=== PATIENT | female | born 1985 | race Caucasian/White ===

== ENCOUNTER 2016-09-10 15:18 | Outpatient (CLI) | payer MEDICAID ==
[~2016-09-10] VITALS: Ht 157.5 cm; Wt 89.9 kg
[~2016-09-10 15:18] MED LIST: ALBU18HF IH; AZIT250T6 PO; OSEL30CA PO; PREN1TAB49 PO
[2016-09-10 15:36] VITALS: BP 113/63; PULSE 89; RESP 18; Ht 157.5 cm; Wt 89.9 kg
[2016-09-10 16:17] LABS: BASOPHILS % 0.5 % (0.0-2.0); EOSINOPHILS # 0.2 10^3/ul (0.0-0.5); EOSINOPHILS % 2.5 % (0.0-7.0); HEMATOCRIT 31.4 % (37.0-47.0); HEMOGLOBIN 10.6 g/dl (12.0-16.0); LYMPHOCYTES # 1.7 10^3/ul (0.8-2.9); LYMPHOCYTES % 18.9 % (15.0-51.0); MEAN CORPUSCULAR HGB CONC 33.8 g/dl (32.0-37.0); MEAN CORPUSCULAR VOLUME 82.8 fl (82.0-101.0); MEAN PLATELET VOLUME 8.2 fl (7.4-10.4); MONOCYTE # 0.7 10^3/ul (0.3-0.9); MONOCYTES % 7.3 % (0.0-11.0); NEUTROPHIL # 6.4 10^3/ul (1.6-7.5); NEUTROPHILS % 70.8 % (39.0-77.0); PLATELET COUNT 226 10^3/UL (140-440); RED BLOOD COUNT 3.79 10^6/ul (4.20-5.40); RED CELL DISTRIBUTION WIDTH 15.3 % (11.5-14.5)
--- NOTE | 2016-09-10 16:17 | QN ---
Documentation Comment 31 y/o female at 34.1 weeks C/O onset of generalized body itching(including palms and soles) X 3 days She has Hx of Asthma: denies SOB cough and..... NST appears R BPP pending as well as labs Bile acids are ordered if CMP stays normal will start on Actigall and Welchol. Follow uo in NST for ? elevated bile acids HAYDEE INFANTE MD Sep 10, 2016 16:17
[2016-09-10 16:21] LABS: CONDITION 1; LH ANALYZER COMMENTS 1
[2016-09-10 16:25] LABS: ALBUMIN 3.2 g/dl (3.3-4.9)
[2016-09-10 16:26] LABS: POTASSIUM 3.9 mmol/L (3.5-5.1)
[2016-09-10 16:28] LABS: ALBUMIN/GLOBULIN RATIO 0.96; CREATININE 0.41 mg/dl (0.44-1.00); TOTAL PROTEIN 6.5 g/dl (6.1-8.1)
[2016-09-10 16:29] LABS: CALCIUM 8.7 mg/dl (8.4-10.2)
--- NOTE | 2016-09-10 16:45 | RADRPT ---
PROCEDURE: US OB biophysical profile. CLINICAL INDICATION: decreased movements, asthma TECHNIQUE: Multiple sonographic images of the pelvis were obtained. The images were reviewed on a PACS workstation. COMPARISON: No prior studies are available for comparison. FINDINGS: There is a single viable intrauterine gestation. Cardiac activity is present with 154 beats per min moon. There is a vertex presentation. The placenta is fundal. There is no evidence of placental abruption. There is a normal amount of amniotic fluid with an SHIRA = 14 cm. Biophysical profile: movement 2/2 tone 2/2. breathing 2/2 SHIRA 2/2 Total 03/04 RPTAT: AA . IMPRESSION: Normal biophysical profile. . .Kaveh Aguilar MD, MD Date Time Electronically viewed and signed by .Kaveh Aguilar MD, MD on 09/10/2016 16:45 .S/
--- NOTE | 2016-09-10 16:56 | TRIAGE ---
OB Triage Datetime Report Generated by CPN: 09/10/2016 16:56 Datetime: 09/10/2016 16:30 Stage of : OB Triage Maternal Assessment Level of Consciousness: Fully Conscious Labor Evaluation Frequency: NONE Monitor Mode: External Resting Tone [place]: Relaxed Heart Rate FHR Baseline Rate: 145 Monitor Mode: External US Variability: Moderate 6-25 bpm Accelerations: 15X15 Decelerations: None Pain Assessment Pain Scale: 0 Pain Presence: None/Denies Pain Type: N/A Pain Goal: 3 Vaginal Exam Membrane Status: Intact Vaginal Bleeding: None Datetime: 09/10/2016 15:33 Assessment Type: Triage Maternal Assessment Level of Consciousness: Fully Conscious DTR's/Clonus: DTRs 2+; No Clonus Headache: Denies Blurred Vision: No Respiratory Effort: Unlabored; Regular Rhythm; Equal Expansion Breath Sounds, Left: Clear and Equal Breath Sounds, Right: Clear and Equal Nausea/Vomiting: Denies RUQ Epigastric Pain: Denies Lower Extremities Edema: None Degree: None Upper Extremities Edema: None Degree: None Facial Edema: None Fall Risk Assessment History of Falling: (0) No Secondary Diagnosis: (0) No Ambulatory Aid: (0) Bedrest/Nurse Assist IV Therapy: (0) No Gait: (0) Normal/Bedrest/Immobile Mental Status: (0) Oriented to Own Ability Fall Score: 0 Fall Risk Score Definition: No Risk: No action required Datetime: 09/10/2016 15:32 Time of Arrival: 09/10/2016 15:17 EGA: 34.1 Arrived By: Ambulatory Arrived From: Dr. Martinez Chief Complaint: pt sent into eval. for c/o asthma and itching Movement: Present Contractions: Denies/Absent Rupture of Membranes: Denies Vaginal Bleeding: None Vaginal Discharge: Denies Recent Sexual Intercouse: Denies Abdominal Trauma: Not Applicable Patient Complaints: Cough; Shortness of Breath; Other Provider Notified: LISA Initial Plan: NST/CBC/CMP/BPP/BILE ACIDS Datetime: 07/26/2016 22:52 EGA: 27.4 Datetime: 07/26/2016 22:41 Fall Score: 0 Fall Risk Score Definition: No Risk: No action required Datetime: 07/19/2016 19:54 Fall Score: 0 Fall Risk Score Definition: No Risk: No action required Datetime: 06/17/2016 19:40 Fall Score: 0 Fall Risk Score Definition: No Risk: No action required Datetime: 06/17/2016 18:50 Fall Score: 0 Fall Risk Score Definition: No Risk: No action required Datetime: 06/17/2016 18:48 EGA: 22.0
[2016-09-10] MEDS ORDERED: URSO300C3 PO (16:57)
[2016-09-10] MEDS ORDERED: COLE625T2 PO (16:58)
== END 2016-09-10 17:18 | disposition home or self-care (01) ==
LOC: L-D 15:18 → OBT 15:18
PROVIDERS: ATTEND Obstetrics & Gynecology
DX: O26.893 Other specified pregnancy related conditions, third trimester (principal); L29.9 Pruritus, unspecified; O36.8130 Decreased fetal movements, third trimester, not applicable or unspecified; O99.513 Diseases of the respiratory system complicating pregnancy, third trimester; J45.909 Unspecified asthma, uncomplicated; Z3A.34 34 weeks gestation of pregnancy
CPT/HCPCS: 36415; 76818; 80053; 83789; 85025; Z7500; G0463

== ENCOUNTER 2016-09-12 13:48 | Outpatient (CLI) | payer MEDICAID ==
[~2016-09-12] VITALS: Ht 157.5 cm; Wt 90.8 kg
[~2016-09-12 13:48] MED LIST changes: -AZIT250T6 PO; +COLE625T2 PO; -OSEL30CA PO; +URSO300C3 PO
[2016-09-12 14:36] VITALS: BP 106/63; PULSE 118; RESP 18; Ht 157.5 cm; Wt 90.8 kg
--- NOTE | 2016-09-12 15:37 | RADRPT ---
PROCEDURE: US OB biophysical profile. CLINICAL INDICATION: decreased movements TECHNIQUE: Multiple sonographic images of the pelvis were obtained. The images were reviewed on a PACS workstation. COMPARISON: 09/10/16 FINDINGS: There is a single viable intrauterine gestation. Cardiac activity is present with 148 beats per min moon. There is a vertex presentation. The placenta is fundal. There is no evidence of placental abruption. There is a normal amount of amniotic fluid with an SHIRA = 16.3 cm. Biophysical profile: movement 2/2 tone 2/2. breathing 2/2 SHIRA 2/2 Total 03/04 RPTAT: AA . IMPRESSION: Normal biophysical profile. . .Kaveh Aguilar MD, MD Date Time Electronically viewed and signed by .Kaveh Aguilar MD, on 09/12/2016 15:37 .S/
--- NOTE | 2016-09-12 17:31 | QN ---
Documentation Comment 31 y/o female here for NST SHIRA for ? cholestasis NST R BPP 8/8P F/U in 3-4 days HAYDEE INFANTE MD Sep 12, 2016 17:30
== END 2016-09-12 17:42 | disposition home or self-care (01) ==
LOC: OBT 13:48 → L-D 13:49 → OBT 17:42
PROVIDERS: ATTEND Obstetrics & Gynecology
DX: O26.613 Liver and biliary tract disorders in pregnancy, third trimester (principal); K83.1 Obstruction of bile duct; Z3A.34 34 weeks gestation of pregnancy
CPT/HCPCS: 76818; Z7500; G0463

== ENCOUNTER 2016-09-16 07:34 | Outpatient (CLI) | payer MEDICAID ==
--- NOTE | 2016-09-16 08:58 | RADRPT ---
PROCEDURE: OB ultrasound for biophysical profile CLINICAL INDICATION: Cholestasis. Biophysical profile. . TECHNIQUE: Multiple sonographic images of the pelvis were obtained. Transabdominal view of the gr avid uterus are available for review. The images were reviewed on a PACS workstation. COMPARISON: 09/12/2016 FINDINGS: breathing movement = 2/2 tone = 2/2 motion = 2/2 SHIRA = 2/2 Single intrauterine gestation is identified in cephalic position. heart rate is 134 bpm. Plac enta is posterior fundal without evidence for abruption or previa. SHIRA measures 14.5 cm, within nor mal limits. IMPRESSION: 1. Single live intrauterine gestation. 2. Biophysical profile = 8/8. 3. SHIRA = 14.5 cm. RPTAT: EE .Francesco Clancy MD, Date Time Electronically viewed and signed by .Francesco Clancy MD, on 09/16/2016 08:57 .R/
== END 2016-09-16 10:00 | disposition home or self-care (01) ==
LOC: L-D 07:34 → OBT 07:34 → L-D 07:40 → OBT 07:40
PROVIDERS: ATTEND Obstetrics & Gynecology
DX: O26.619 Liver and biliary tract disorders in pregnancy, unspecified trimester (principal); Z3A.00 Weeks of gestation of pregnancy not specified
CPT/HCPCS: 76818; Z7500; G0463

== ENCOUNTER 2016-09-20 15:43 | Outpatient (CLI) | payer MEDICAID ==
[~2016-09-20] VITALS: Ht 157.5 cm; Wt 91.8 kg
[~2016-09-20 15:43] MED LIST changes: -ALBU18HF IH; -COLE625T2 PO
[2016-09-20 16:04] VITALS: BP 114/56; Ht 157.5 cm; Wt 91.8 kg
--- NOTE | 2016-09-20 16:49 | RADRPT ---
PROCEDURE: OB ultrasound for biophysical profile CLINICAL INDICATION: Decreased movement TECHNIQUE: Multiple sonographic images of the pelvis were obtained. Transabdominal view of the gr avid uterus are available for review. The images were reviewed on a PACS workstation. COMPARISON: OB ultrasound 09/16/2016 FINDINGS: breathing movement = 2/2 tone = 2/2 motion = 2/2 SHIRA = 2/2 SHIRA = 13.8 cm Single live intrauterine with cardiac activity. heart rate equals 141 beats p er minute. Presentation is cephalic. The placenta is fundal. IMPRESSION: 1. Single viable intrauterine gestation. 2. Biophysical profile = 8/8. 3. SHIRA = 13.8 cm. RPTAT: HJBF .Pablo Berman MD, MD Date Time Electronically viewed and signed by .Pablo Berman MD, MD on 09/20/2016 16:49 .B/
--- NOTE | 2016-09-20 18:00 | QN ---
Documentation Comment 31 y/o female p3 with at 35.4 weeks here for decreased FM bile acids were drawn on : Normal NST R BPP 03/04 P: home; HAYDEE INFANTE MD Sep 20, 2016 18:00
--- NOTE | 2016-09-20 18:23 | PN ---
Date/Time of Note Date/Time of Note DATE: 09/20/16 TIME: 18:20 OB Subjective Subjective Subjective No C/O H/A B/V or epigastric pain OB Objective Objective Objective Cx: 1cm -4 intact OB Assessment/Plan Reason for admission: induction of labor Other Assessment: PIH 37 weeks Induction Method: per Misoprostol Protocol HAYDEE INFANTE MD Sep 20, 2016 18:23
== END 2016-09-20 18:35 | disposition home or self-care (01) ==
LOC: L-D 15:43 → OBT 15:43
PROVIDERS: ATTEND Obstetrics & Gynecology
DX: O36.8130 Decreased fetal movements, third trimester, not applicable or unspecified (principal); O13.3 Gestational [pregnancy-induced] hypertension without significant proteinuria, third trimester; Z3A.35 35 weeks gestation of pregnancy
CPT/HCPCS: 76818; Z7500; G0463

== ENCOUNTER 2016-09-24 01:05 | Outpatient (CLI) | payer MEDICAID ==
[~2016-09-24] VITALS: Ht 157.5 cm; Wt 92.8 kg
[2016-09-24 01:27] VITALS: BP 108/59; PULSE 80; RESP 20; Ht 157.5 cm; Wt 92.8 kg
[2016-09-24] MEDS ORDERED: HYDROmorphONE 1 MG/ML SYG IV STA (01:31)
[2016-09-24] MEDS ORDERED: LACTATED RINGER'S 1,000 ML IV* SCH (02:00)
[2016-09-24] MEDS ORDERED: LACTATED RINGER'S 500 ML IV ONE (02:00)
--- NOTE | 2016-09-24 02:08 | RADRPT ---
PROCEDURE: ULTRASOUND BIOPHYSICAL PROFILE CLINICAL INDICATION: 31-year-old female for viability. TECHNIQUE: Multiple sonographic images were obtained in order to perform a biophysical profile The images were reviewed on a PACS workstation. COMPARISON: Ultrasound biophysical profile September 20, 2016. FINDINGS: There is a single viable intrauterine gestation. There is a vertex presentation. Cardiac activity i s present at 159 beats per minute. The placenta is fundal. The results of the biophysical profile a re as follows: breathing movement = 2/2 Gross body movement = 2/2 tone = 2/2 Qualitative amniotic fluid volume = 2/2 Amniotic fluid index equals 10.2 cm. This yields a biophysical profile score of 8/8. IMPRESSION: Biophysical profile score is 8/8. .Juan Francisco Amaral MD, MD Date Time Electronically viewed and signed by .Juan Francisco Amaral MD, on 09/24/2016 02:07 .Genoveva/
--- NOTE | 2016-09-24 02:09 | RADRPT ---
PROCEDURE: ULTRASOUND LIMITED ABDOMEN CLINICAL INDICATION: 31-year-old female with abdominal pain. TECHNIQUE: Multiple sonographic of the right upper quadrant of the abdomen were obtained. The imag es were reviewed on a PACS workstation. COMPARISON: None. FINDINGS: The pancreas is not well visualized secondary to overlying bowel gas. The liver displays normal echogenicity. The liver measures cm in length. No evidence of intrahepat ic biliary ductal dilatation is seen. The portal and hepatic veins are unremarkable. The gallbladder contains multiple shadowing stones. The gallbladder wall is at the upper limits of normal measuring 3.2 mm. No pericholecystic fluid is seen. The common bile duct measures 3.0 mm and is not dilated. The right kidney displays normal echogenicity. The right kidney measures 15.3 cm in maximal length. No caliectasis or hydronephrosis is seen. No free fluid is seen. IMPRESSION: Cholelithiasis. .Juan Francisco Amaral MD, Date Time Electronically viewed and signed by .Juan Francisco Amaral MD, on 09/24/2016 02:08 .Marco A
[2016-09-24 02:22] LABS: ADD UMIC NO; URINE BILIRUBIN (Dip) NEGATIVE (NEGATIVE); URINE BLOOD (Dip) NEGATIVE (NEGATIVE); URINE COLOR LT. YELLOW (YELLOW); URINE GLUCOSE (Dip) NEGATIVE (NEGATIVE); URINE KETONES (Dip) NEGATIVE (NEGATIVE); URINE LEUKOCYTE ESTERASE (Dip) NEGATIVE (NEGATIVE); URINE NITRITE (Dip) NEGATIVE (NEGATIVE); URINE TOTAL PROTEIN (Dip) NEGATIVE (NEGATIVE); URINE UROBILINOGEN (Dip) 0.2 E.U./dL (0.1-1.0)
[2016-09-24 02:36] LABS: ADD SCAN DIFF NO
[2016-09-24 02:37] LABS: BASOPHILS % 0.5 % (0.0-2.0); EOSINOPHILS # 0.1 10^3/ul (0.0-0.5); EOSINOPHILS % 1.7 % (0.0-7.0); HEMATOCRIT 31.6 % (37.0-47.0); HEMOGLOBIN 10.4 g/dl (12.0-16.0); LYMPHOCYTES # 1.8 10^3/ul (0.8-2.9); LYMPHOCYTES % 22.1 % (15.0-51.0); MEAN CORPUSCULAR HEMOGLOBIN 27.4 pg (29.0-33.0); MEAN CORPUSCULAR HGB CONC 32.9 g/dl (32.0-37.0); MEAN CORPUSCULAR VOLUME 83.2 fl (82.0-101.0); MEAN PLATELET VOLUME 11.1 fl (7.4-10.4); MONOCYTE # 0.7 10^3/ul (0.3-0.9); MONOCYTES % 8.5 % (0.0-11.0); NEUTROPHIL # 5.5 10^3/ul (1.6-7.5); NEUTROPHILS % 66.6 % (39.0-77.0); PLATELET COUNT 200 10^3/UL (140-415); RED CELL DISTRIBUTION WIDTH 15.2 % (11.5-14.5); WHITE BLOOD COUNT 8.3 10^3/ul (4.8-10.8)
[2016-09-24 03:49] LABS: POTASSIUM 3.8 mmol/L (3.5-5.1)
[2016-09-24 03:51] LABS: CREATININE 0.4 mg/dl (0.44-1.00)
[2016-09-24 03:52] LABS: CALCIUM 8.5 mg/dl (8.4-10.2)
--- NOTE | 2016-09-24 04:23 | PN ---
Date/Time of Note Date/Time of Note DATE: 09/24/16 TIME: 04:17 OB Subjective Subjective Subjective 31 Year-old with SIUP at 36 1/7 wks presents with a chief complaint of abdominal pain. She has been receiving her care with Dr. Diaz. She states good movement. She denies nausea, vomiting, shortness of breath, chest pain, headache, visual changes, vaginal bleeding or LOF. OB Objective Objective Objective Physical Exam: General: Patient appears well, alert and oriented, NAD, appropriate mood and affect ABD: gravid, soft, mil RUQ tenderness, no rebound. Back: No CVA tenderness (B/L) LE: No clubbing, cyanosis, edema, thigh or calf tenderness bilaterally FHT: 140 bpm , moderate variability with acceleration, no deceleration-category I Contractions: None OB, BPP and abdominal us performed. Please see the report OB Assessment/Plan Other plan: 31 Year-old with cholestasis on actigal and cholelithiasis at 36 1/7 wks - FHR: No sign of metabolic acidosis- Category I - Continuous EFM, toco - Contractions: None. - Reactive NST. BPP: 10/10 - She received dilaudid x1, currently has no further pain - Symptoms and sign of labor, preeclampsia, kick count discussed with patient, she voiced understanding. All of her questions answered. - Patient was discharged home in stable condition with the appropriate discharge instructions provided. I would like patient to have close follow-up with her primary OB physician or outpatient clinic in 1-2 days or return to the ER for worsening symptoms or any other urgent concerns. KASHMIR TEJADA Sep 24, 2016 04:23
--- NOTE | 2016-09-24 06:54 | TRIAGE ---
OB Triage Datetime Report Generated by CPN: 09/24/2016 06:53 Datetime: 09/24/2016 04:36 Stage of : OB Triage Labor Evaluation Frequency: Irregular Monitor Mode: External Duration (sec)2399: 40-70 Quality: Mild Pattern: Normal: <= 5 Contractions in 10 Minutes Resting Tone [place]: Relaxed Heart Rate FHR Baseline Rate: 120 Monitor Mode: External US FHR Baseline Changes: No Baseline Change Variability: Moderate 6-25 bpm Accelerations: 15X15 Decelerations: None Category: Category I Pain Assessment Pain Scale: 0 Pain Presence: None/Denies Pain Type: N/A Pain Assessment Comments: Pt denies any further pain Datetime: 09/24/2016 04:21 Assessment Type: Triage Datetime: 09/24/2016 04:00 Stage of : OB Triage Labor Evaluation Frequency: Irregular Monitor Mode: External Duration (sec)2399: 40-80 Quality: Mild Pattern: Normal: <= 5 Contractions in 10 Minutes Resting Tone [place]: Relaxed Heart Rate FHR Baseline Rate: 120 Monitor Mode: External US Variability: Moderate 6-25 bpm Accelerations: 15X15 Decelerations: None Category: Category I Datetime: 09/24/2016 03:00 Stage of : OB Triage Labor Evaluation Frequency: Irregular Monitor Mode: External Duration (sec)2399: 40-80 Quality: Mild Pattern: Normal: <= 5 Contractions in 10 Minutes Resting Tone [place]: Relaxed Heart Rate FHR Baseline Rate: 125 Monitor Mode: External US FHR Baseline Changes: No Baseline Change Variability: Moderate 6-25 bpm Accelerations: 15X15 Decelerations: None Category: Category I Datetime: 09/24/2016 02:00 Stage of : OB Triage Labor Evaluation Frequency: Occasional Monitor Mode: External Duration (sec)2399: 40-60 Quality: Mild Pattern: Normal: <= 5 Contractions in 10 Minutes Resting Tone [place]: Relaxed Heart Rate FHR Baseline Rate: 125 Monitor Mode: External US Variability: Moderate 6-25 bpm Accelerations: 15X15 Decelerations: None Category: Category I Datetime: 09/24/2016 01:20 Stage of : OB Triage Datetime: 09/24/2016 01:15 Stage of : OB Triage Assessment Type: Triage Maternal Assessment Level of Consciousness: Fully Conscious DTR's/Clonus: DTRs 2+; No Clonus Headache: Denies Blurred Vision: No Respiratory Effort: Unlabored; Regular Rhythm; Equal Expansion Breath Sounds, Left: Clear and Equal Breath Sounds, Right: Clear and Equal Nausea/Vomiting: Denies RUQ Epigastric Pain: Present (Annotations: RUQ not central abd) Lower Extremities Edema: Bilateral Lower Extremities Degree: 1+ Upper Extremities Edema: Bilateral Upper Extremities Degree: 1+ Facial Edema: None Temperature Route: Oral Fall Risk Assessment History of Falling: (0) No Secondary Diagnosis: (0) No Ambulatory Aid: (0) Bedrest/Nurse Assist IV Therapy: (0) No Gait: (0) Normal/Bedrest/Immobile Mental Status: (0) Oriented to Own Ability Fall Score: 0 Fall Risk Score Definition: No Risk: No action required Pain Assessment Pain Scale: 8 Pain Presence: Constant Pain Type: Sharp; Stabbing Pain Location: Abdomen (Annotations: RUQ) Pain Relief Measures: Comfort Measures Datetime: 09/24/2016 01:13 Monitor Mode: External Contraction Comments: [place] applied Heart Rate FHR Baseline Rate: 135 Monitor Mode: External US Comments: EFM applied Datetime: 09/24/2016 01:12 Time of Arrival: 09/24/2016 00:58 EGA: 36.1 Arrived By: Wheelchair Arrived From: Home Chief Complaint: Constant RUQ pain Movement: Present Contractions: Denies/Absent Rupture of Membranes: Denies Vaginal Bleeding: None Vaginal Discharge: Denies Abdominal Trauma: Not Applicable Patient Complaints: Other Additional Patient Complaints: Pt reports having cholestasis - currently taking Ursodiol _ Welchol Time Provider Notified: 09/24/2016 01:20 Provider Notified: Initial Plan: U/S RUQ, BPP, CBC, CMP, IV hydration _ Dilaudid 1mg IVP Datetime: 09/20/2016 18:23 Time of Arrival: 09/20/2016 15:40 EGA: 35.4 Arrived By: Ambulatory Arrived From: Home Chief Complaint: DFM Movement: Decreased Contractions: Denies/Absent Rupture of Membranes: Denies Vaginal Bleeding: None Vaginal Discharge: Denies Recent Sexual Intercouse: Denies Abdominal Trauma: Not Applicable Patient Complaints: Other Time Provider Notified: 09/20/2016 16:20 Provider Notified: DR. LISA Initial Plan: NST Datetime: 09/20/2016 18:19 Labor Evaluation Frequency: 0 Monitor Mode: External Resting Tone [place]: Relaxed Monitor Mode: External US Variability: Moderate 6-25 bpm Accelerations: 15X15 Decelerations: None Category: Category I Datetime: 09/20/2016 17:33 Labor Evaluation Frequency: 0 Monitor Mode: External Resting Tone [place]: Relaxed Heart Rate FHR Baseline Rate: 155 Monitor Mode: External US Variability: Moderate 6-25 bpm Accelerations: 15X15 Decelerations: None Category: Category I Pain Presence: None/Denies Pain Type: N/A Datetime: 09/20/2016 16:07 Stage of : OB Triage Assessment Type: Triage Maternal Assessment Level of Consciousness: Fully Conscious DTR's/Clonus: DTRs 2+; No Clonus Headache: Denies Blurred Vision: No Respiratory Effort: Unlabored; Regular Rhythm; Equal Expansion Breath Sounds, Left: Clear and Equal Breath Sounds, Right: Clear and Equal Nausea/Vomiting: Denies RUQ Epigastric Pain: Denies Lower Extremities Edema: None Degree: None Upper Extremities Edema: None Degree: None Facial Edema: None Temperature Route: Oral Fall Risk Assessment History of Falling: (0) No Secondary Diagnosis: (0) No Ambulatory Aid: (0) Bedrest/Nurse Assist IV Therapy: (0) No Gait: (0) Normal/Bedrest/Immobile Mental Status: (0) Oriented to Own Ability Fall Score: 0 Fall Risk Score Definition: No Risk: No action required Labor Evaluation Frequency: 0 Monitor Mode: External Heart Rate FHR Baseline Rate: 155 Monitor Mode: External US Variability: Moderate 6-25 bpm Accelerations: 10X10 Decelerations: None Category: Category I Pain Assessment Pain Scale: 6 Pain Presence: Intermittent Pain Type: Pressure Pain Location: Abdomen Pain Goal: 0 Datetime: 09/16/2016 10:13 Time of Arrival: 09/20/2016 15:40 EGA: 35.4 Arrived By: Ambulatory Arrived From: Home Chief Complaint: DFM Movement: Decreased Contractions: Denies/Absent Rupture of Membranes: Denies Vaginal Bleeding: None Vaginal Discharge: Denies Recent Sexual Intercouse: Denies Abdominal Trauma: Not Applicable Patient Complaints: Other Time Provider Notified: 09/20/2016 16:20 Provider Notified: LISA Initial Plan: NST , BPP/ SHIRA Datetime: 09/16/2016 09:39 Stage of : OB Triage Datetime: 09/16/2016 09:02 Labor Evaluation Frequency: 0 Monitor Mode: External Resting Tone [place]: Relaxed Heart Rate FHR Baseline Rate: 135 Monitor Mode: External US Variability: Moderate 6-25 bpm Accelerations: 10X10 Decelerations: None Category: Category I Pain Assessment Pain Scale: 0 Pain Presence: None/Denies Pain Type: N/A Pain Goal: 3 Pain Relief Measures: Comfort Measures Datetime: 09/16/2016 08:01 Stage of : OB Triage Assessment Type: Triage Maternal Assessment Level of Consciousness: Fully Conscious DTR's/Clonus: DTRs 2+; No Clonus Headache: Denies Blurred Vision: No Respiratory Effort: Unlabored; Regular Rhythm; Equal Expansion Breath Sounds, Left: Clear and Equal Breath Sounds, Right: Clear and Equal Nausea/Vomiting: Denies RUQ Epigastric Pain: Denies Lower Extremities Edema: None Degree: None Upper Extremities Edema: None Degree: None Facial Edema: None Temperature Route: Axillary Fall Risk Assessment History of Falling: (0) No Secondary Diagnosis: (0) No Ambulatory Aid: (0) Bedrest/Nurse Assist IV Therapy: (0) No Gait: (0) Normal/Bedrest/Immobile Mental Status: (0) Oriented to Own Ability Fall Score: 0 Fall Risk Score Definition: No Risk: No action required Labor Evaluation Frequency: X1 Monitor Mode: External Duration (sec)2399: 40 Quality: Mild Pattern: Normal: <= 5 Contractions in 10 Minutes Resting Tone [place]: Relaxed Heart Rate FHR Baseline Rate: 145 Monitor Mode: External US Variability: Moderate 6-25 bpm Decelerations: None Category: Category I Pain Assessment Pain Scale: 1 Pain Presence: Constant Pain Type: Cramping Pain Location: Left Hip Pain Goal: 3 Pain Relief Measures: Comfort Measures Datetime: 09/16/2016 07:28 Time of Arrival: 09/16/2016 07:28 EGA: 35.0 Arrived By: Ambulatory Arrived From: Home Chief Complaint: FOLLOW UP CHOLESTASIS, DENIES BLEEDING, UC'S OR LEAKING OF FLUID, MILD CONSTANT P AIN IN LOWER LEFT QUADRANT OF ABDOMIN LAST NIGHT Movement: Present Contractions: Denies/Absent Rupture of Membranes: Denies Vaginal Bleeding: None Vaginal Discharge: Denies Recent Sexual Intercouse: Denies Abdominal Trauma: Not Applicable Patient Complaints: None Time Provider Notified: 09/16/2016 09:15 Provider Notified: LISA Initial Plan: MONITOR, BPP Datetime: 09/12/2016 17:40 Time of Arrival: 09/16/2016 07:28 EGA: 35.0 Arrived By: Ambulatory Arrived From: Home Chief Complaint: F Movement: Present Contractions: Denies/Absent Rupture of Membranes: Denies Vaginal Bleeding: None Vaginal Discharge: Denies Recent Sexual Intercouse: Denies Abdominal Trauma: Not Applicable Patient Complaints: None Time Provider Notified: 09/16/2016 09:15 Datetime: 09/12/2016 17:24 Stage of : OB Triage Labor Evaluation Frequency: x1 Monitor Mode: External Duration (sec)2399: 60 Quality: Mild Resting Tone [place]: Relaxed Heart Rate FHR Baseline Rate: 135 Monitor Mode: External US Variability: Moderate 6-25 bpm Accelerations: 15X15 Decelerations: None Category: Category I Datetime: 09/12/2016 16:37 Stage of : OB Triage Datetime: 09/12/2016 16:00 Stage of : OB Triage Labor Evaluation Frequency: 135 Monitor Mode: External Resting Tone [place]: Relaxed Heart Rate FHR Baseline Rate: 135 Monitor Mode: External US Variability: Moderate 6-25 bpm Accelerations: 15X15 Decelerations: None Category: Category I Datetime: 09/12/2016 15:22 Stage of : OB Triage Datetime: 09/12/2016 15:21 Stage of : OB Triage Datetime: 09/12/2016 15:17 Stage of : OB Triage Datetime: 09/12/2016 15:01 Stage of : OB Triage Labor Evaluation Frequency: 0 Monitor Mode: External Resting Tone [place]: Relaxed Heart Rate FHR Baseline Rate: 135 Monitor Mode: External US Variability: Moderate 6-25 bpm Accelerations: 15X15 Decelerations: None Category: Category I Datetime: 09/12/2016 14:24 Time of Arrival: 09/12/2016 13:40 EGA: 34.3 Arrived By: Ambulatory Arrived From: Home Chief Complaint: FU NST BPP RT CHOLESTASIS Movement: Present Contractions: Denies/Absent Rupture of Membranes: Denies Vaginal Bleeding: None Vaginal Discharge: Denies Recent Sexual Intercouse: Denies Abdominal Trauma: Not Applicable Patient Complaints: Other Provider Notified: LISA Initial Plan: VS, NST, BPP Datetime: 09/12/2016 14:04 Assessment Type: Triage Maternal Assessment Level of Consciousness: Fully Conscious DTR's/Clonus: DTRs 2+; No Clonus Headache: Denies Blurred Vision: No Respiratory Effort: Unlabored Breath Sounds, Left: Clear and Equal Breath Sounds, Right: Clear and Equal Nausea/Vomiting: Denies RUQ Epigastric Pain: Denies Lower Extremities Edema: Bilateral Lower Extremities Degree: 1+ Upper Extremities Edema: None Degree: None Facial Edema: None Fall Risk Assessment History of Falling: (0) No Secondary Diagnosis: (15) Yes (Annotations: CHOLESTASIS OF ) Ambulatory Aid: (0) Bedrest/Nurse Assist IV Therapy: (0) No Gait: (0) Normal/Bedrest/Immobile Mental Status: (0) Oriented to Own Ability Fall Score: 15 Fall Risk Score Definition: No Risk: No action required Comment: 0 Datetime: 09/12/2016 14:03 Stage of : OB Triage Monitor Mode: External Datetime: 09/12/2016 14:01 Stage of : OB Triage Monitor Mode: External US Datetime: 09/12/2016 13:56 Stage of : OB Triage Datetime: 09/12/2016 13:45 Stage of : OB Triage Datetime: 09/10/2016 15:33 Fall Score: 0 Fall Risk Score Definition: No Risk: No action required Datetime: 09/10/2016 15:32 EGA: 34.1 Datetime: 07/26/2016 22:52 EGA: 27.4 Datetime: 07/26/2016 22:41 Fall Score: 0 Fall Risk Score Definition: No Risk: No action required Datetime: 07/19/2016 19:54 Fall Score: 0 Fall Risk Score Definition: No Risk: No action required Datetime: 06/17/2016 19:40 Fall Score: 0 Fall Risk Score Definition: No Risk: No action required Datetime: 06/17/2016 18:50 Fall Score: 0 Fall Risk Score Definition: No Risk: No action required Datetime: 06/17/2016 18:48 EGA: 22.0
== END 2016-09-24 04:45 | disposition home or self-care (01) ==
LOC: OBT 01:05 → L-D 01:06 → OBT 04:45
PROVIDERS: ATTEND Obstetrics & Gynecology
DX: O99.613 Diseases of the digestive system complicating pregnancy, third trimester (principal); K80.20 Calculus of gallbladder without cholecystitis without obstruction; Z3A.36 36 weeks gestation of pregnancy
CPT/HCPCS: 36415; 76705; 76818; 80053; 81003; 85025; 96360; 96361; 96374; J1170; J7120; Z7500; G0463

== ENCOUNTER 2016-10-07 20:24 | Outpatient (CLI) | payer MEDICAID ==
[~2016-10-07] VITALS: Ht 157.5 cm; Wt 94.6 kg
[2016-10-07 21:38] VITALS: Ht 157.5 cm; Wt 94.6 kg
[2016-10-07 21:39] VITALS: BP 111/60; PULSE 86; RESP 19
--- NOTE | 2016-10-07 22:29 | RADRPT ---
PROCEDURE: Ultrasound of the bilateral lower extremity venous system. CLINICAL INDICATION: Bilateral leg pain and swelling, deep venous thrombosis TECHNIQUE: Levine scale with and without compression, color doppler, spectral doppler of the venous system of the bilateral lower extremities was performed. Venous augmentation maneuvers were utilized . COMPARISON: No prior studies are available for comparison. FINDINGS: RIGHT: Common femoral vein: Patent. Femoral vein: Patent. Popliteal vein: Patent. Calf veins: Patent. No soft tissue abnormalities are identified. LEFT: Common femoral vein: Patent. Femoral vein: Patent. Popliteal vein: Patent. Calf veins: Patent. No soft tissue abnormalities are identified. IMPRESSION: No evidence of a deep vein thrombosis within the bilateral lower extremities. RPTAT: AADD .Alejandro Valles MD, MD Date Time Electronically viewed and signed by .Alejandro Valles MD, on 10/07/2016 22:28 .B/
--- NOTE | 2016-10-08 02:54 | TRIAGE ---
OB Triage Datetime Report Generated by CPN: 10/08/2016 02:54 Datetime: 10/07/2016 23:35 Vaginal Exam Dilatation (cms): 2.5 Effacement (%): 70 Station: -2 Exam By: Viviane Key RN Membrane Status: Intact Vaginal Bleeding: None Cervix, Consistency: Soft Cervix, Position: Posterior Datetime: 10/07/2016 21:03 Vaginal Exam Dilatation (cms): 2.5 Effacement (%): 70 Station: -2 Exam By: Viviane Key RN Vaginal Bleeding: None Cervix, Consistency: Moderate Cervix, Position: Posterior Presentation 'A': Cephalic Datetime: 10/07/2016 21:00 Time of Arrival: 10/07/2016 20:25 EGA: 38.0 Arrived By: Wheelchair Arrived From: Home Chief Complaint: Contractions Movement: Present Contractions: Irregular Time Contractions Began: 10/07/2016 09:00 Contractions: Every 10 minutes Rupture of Membranes: Denies Vaginal Bleeding: None Vaginal Discharge: Denies Recent Sexual Intercouse: Denies Abdominal Trauma: Not Applicable Patient Complaints: Contractions; Other Additional Patient Complaints: Left leg pain that goes up to her thigh. Time Provider Notified: 10/07/2016 21:15 Provider Notified: Dr. Reese Initial Plan: CEFM, VE Datetime: 10/07/2016 20:58 Labor Evaluation Monitor Mode: Palpation (Annotations: Applied) Resting Tone [place]: Relaxed Heart Rate Monitor Mode: External US (Annotations: Applied) Datetime: 09/24/2016 04:18 Stage of : OB Triage Datetime: 09/24/2016 01:15 Fall Risk Assessment Fall Score: 0 Fall Risk Score Definition: No Risk: No action required Datetime: 09/24/2016 01:12 EGA: 36.1 Datetime: 09/20/2016 18:23 EGA: 35.4 Datetime: 09/20/2016 16:07 Fall Risk Assessment Fall Score: 0 Fall Risk Score Definition: No Risk: No action required Datetime: 09/16/2016 10:13 EGA: 35.4 Datetime: 09/16/2016 08:01 Fall Risk Assessment Fall Score: 0 Fall Risk Score Definition: No Risk: No action required Datetime: 09/16/2016 07:28 EGA: 35.0 Datetime: 09/12/2016 17:40 EGA: 35.0 Datetime: 09/12/2016 14:24 EGA: 34.3 Datetime: 09/12/2016 14:04 Fall Risk Assessment Fall Score: 15 Fall Risk Score Definition: No Risk: No action required Datetime: 09/10/2016 15:33 Fall Risk Assessment Fall Score: 0 Fall Risk Score Definition: No Risk: No action required Datetime: 09/10/2016 15:32 EGA: 34.1 Datetime: 07/26/2016 22:52 EGA: 27.4 Datetime: 07/26/2016 22:41 Fall Risk Assessment Fall Score: 0 Fall Risk Score Definition: No Risk: No action required Datetime: 07/19/2016 19:54 Fall Risk Assessment Fall Score: 0 Fall Risk Score Definition: No Risk: No action required Datetime: 06/17/2016 19:40 Fall Risk Assessment Fall Score: 0 Fall Risk Score Definition: No Risk: No action required Datetime: 06/17/2016 18:50 Fall Risk Assessment Fall Score: 0 Fall Risk Score Definition: No Risk: No action required Datetime: 06/17/2016 18:48 EGA: 22.0
--- NOTE | 2016-10-08 07:36 | PN ---
Date/Time of Note Date/Time of Note DATE: 10/08/16 TIME: 07:31 OB Subjective Subjective Subjective 31 Year-old with SIUP at 38 weeks presents with a chief complaint of irreg ucs and left leg pain. She has been receiving her care with Dr. Diaz. She states good movement. She denies nausea, vomiting, shortness of breath, chest pain, headache, visual changes, vaginal bleeding or LOF. OB Objective Objective Objective General: Patient appears well, alert and oriented, NAD, appropriate mood and affect ABD: gravid, soft, non-tender. Back: No CVA tenderness (B/L) LE: No clubbing, cyanosis, edema, thigh or calf tenderness bilaterally. No erythema bilateral FHT: 135 bpm , moderate variability with acceleration, no deceleration-category I Contractions: Occasional SVE: 2.5/70/-3/ceph/intact membrane. No cx changes in 2 hrs interval exam OB Assessment/Plan Other plan: 31 Year-old with SIUP at 38 weeks with irreg ucs w/o cx changes and left leg pain - FHR: No sign of metabolic acidosis- Category I - Continuous EFM, toco - Reactive NST. - OB us for SHIRA - Doppler study od left leg: nml - Symptoms and sign of labor, preeclampsia, kick count discussed with patient, she voiced understanding. All of her questions answered. - Patient was discharged home in stable condition with the appropriate discharge instructions provided. I would like patient to have close follow-up with her primary physician or outpatient clinic in 1-2 days or return to the ER for worsening symptoms or any other urgent concerns. KASHMIR TEJADA Oct 08, 2016 07:36
== END 2016-10-07 23:55 | disposition home or self-care (01) ==
LOC: L-D 20:24 → OBT 20:24 → L-D 20:50 → OBT 23:55
PROVIDERS: ATTEND Obstetrics & Gynecology
DX: O62.9 Abnormality of forces of labor, unspecified (principal); O26.893 Other specified pregnancy related conditions, third trimester; M79.605 Pain in left leg; Z3A.38 38 weeks gestation of pregnancy
CPT/HCPCS: 93970; Z7500; G0463

== ENCOUNTER 2016-10-10 00:18 | Outpatient (CLI) | payer MEDICAID ==
[~2016-10-10] VITALS: Ht 157.5 cm; Wt 95.5 kg
[2016-10-10 00:50] VITALS: BP 122/62; PULSE 89; RESP 18
[2016-10-10 02:24] LABS: ADD SCAN DIFF NO
[2016-10-10 02:28] LABS: BASOPHILS % 0.4 % (0.0-2.0); EOSINOPHILS # 0.2 10^3/ul (0.0-0.5); EOSINOPHILS % 2.2 % (0.0-7.0); HEMOGLOBIN 9.9 g/dl (12.0-16.0); LYMPHOCYTES # 1.9 10^3/ul (0.8-2.9); LYMPHOCYTES % 24.8 % (15.0-51.0); MEAN CORPUSCULAR HEMOGLOBIN 26.5 pg (29.0-33.0); MEAN CORPUSCULAR HGB CONC 31.9 g/dl (32.0-37.0); MEAN CORPUSCULAR VOLUME 83.1 fl (82.0-101.0); MEAN PLATELET VOLUME 11.2 fl (7.4-10.4); MONOCYTE # 0.7 10^3/ul (0.3-0.9); MONOCYTES % 8.5 % (0.0-11.0); NEUTROPHILS % 63.7 % (39.0-77.0); PLATELET COUNT 175 10^3/UL (140-415); RED BLOOD COUNT 3.73 10^6/ul (4.20-5.40); RED CELL DISTRIBUTION WIDTH 15.9 % (11.5-14.5); WHITE BLOOD COUNT 7.8 10^3/ul (4.8-10.8)
[2016-10-10 02:34] LABS: ADD UMIC NO; URINE BILIRUBIN (Dip) NEGATIVE (NEGATIVE); URINE BLOOD (Dip) NEGATIVE (NEGATIVE); URINE COLOR LT. YELLOW (YELLOW); URINE GLUCOSE (Dip) NEGATIVE (NEGATIVE); URINE KETONES (Dip) NEGATIVE (NEGATIVE); URINE LEUKOCYTE ESTERASE (Dip) NEGATIVE (NEGATIVE); URINE NITRITE (Dip) NEGATIVE (NEGATIVE); URINE TOTAL PROTEIN (Dip) NEGATIVE (NEGATIVE); URINE UROBILINOGEN (Dip) 0.2 E.U./dL (0.1-1.0)
[2016-10-10 02:37] LABS: ALBUMIN 2.7 g/dl (3.3-4.9)
[2016-10-10 02:38] LABS: POTASSIUM 3.8 mmol/L (3.5-5.1)
[2016-10-10 02:40] LABS: ALBUMIN/GLOBULIN RATIO 0.93; BILIRUBIN,INDIRECT 0.1 mg/dl (0-1.1); BILIRUBIN,TOTAL 0.1 mg/dl (0.2-1.3); CREATININE 0.44 mg/dl (0.44-1.00); TOTAL PROTEIN 5.6 g/dl (6.1-8.1)
[2016-10-10 02:41] LABS: CALCIUM 8.3 mg/dl (8.4-10.2); URIC ACID 3.3 mg/dl (3.1-7.9)
--- NOTE | 2016-10-10 03:03 | RADRPT ---
PROCEDURE: ULTRASOUND BIOPHYSICAL PROFILE CLINICAL INDICATION: 31-year-old female with contractions for viability. TECHNIQUE: Multiple sonographic images were obtained in order to perform a biophysical profile The images were reviewed on a PACS workstation. COMPARISON: Ultrasound biophysical profile September 24, 2016. FINDINGS: There is a single viable intrauterine gestation. There is a vertex presentation. Cardiac activity i s present at 146 beats per minute. The placenta is fundal. The results of the biophysical profile a re as follows: breathing movement = 2/2 Gross body movement = 2/2 tone = 2/2 Qualitative amniotic fluid volume = 2/2 Amniotic fluid index equals 12.4 cm. This yields a biophysical profile score of 8/8. IMPRESSION: Biophysical profile score is 8/8. .Juan Francisco Amaral MD, MD Date Time Electronically viewed and signed by .Juan Francisco Amaral MD, MD on 10/10/2016 03:03 .M/
--- NOTE | 2016-10-10 04:31 | TRIAGE ---
OB Triage Datetime Report Generated by CPN: 10/10/2016 04:31 Datetime: 10/10/2016 03:00 Stage of : OB Triage Labor Evaluation Frequency: 2-8 Monitor Mode: External Duration (sec)2399: 60 Quality: Mild Pattern: Normal: <= 5 Contractions in 10 Minutes Resting Tone [place]: Relaxed Heart Rate FHR Baseline Rate: 140 Monitor Mode: External US FHR Baseline Changes: No Baseline Change Variability: Moderate 6-25 bpm Accelerations: 15X15 Decelerations: None Category: Category I Datetime: 10/10/2016 02:00 Monitor Mode: External Quality: Mild Pattern: Normal: <= 5 Contractions in 10 Minutes Resting Tone [place]: Relaxed Heart Rate FHR Baseline Rate: 130 Monitor Mode: External US FHR Baseline Changes: No Baseline Change Variability: Moderate 6-25 bpm Accelerations: 15X15 Decelerations: None Category: Category I Datetime: 10/10/2016 01:08 Stage of : OB Triage Labor Evaluation Frequency: 2-10 Monitor Mode: External Duration (sec)2399: 30-60 Quality: Mild Pattern: Normal: <= 5 Contractions in 10 Minutes Resting Tone [place]: Relaxed Heart Rate FHR Baseline Rate: 135 Monitor Mode: External US FHR Baseline Changes: No Baseline Change Variability: Moderate 6-25 bpm Accelerations: 15X15 Decelerations: None Category: Category I Datetime: 10/10/2016 00:43 Time of Arrival: 10/10/2016 00:15 EGA: 38.3 Arrived By: Wheelchair Arrived From: Home Chief Complaint: w/ c/o ucs. States hx cholestasis and gallstones this Movement: Decreased Contractions: Denies/Absent Time Contractions Began: 10/09/2016 23:30 Contractions: q5 Rupture of Membranes: Denies Vaginal Bleeding: None Vaginal Discharge: Denies Recent Sexual Intercouse: Denies Abdominal Trauma: Not Applicable Patient Complaints: Contractions; Visual Disturbance; Nausea; Vomiting; Urinary Frequency Time Provider Notified: 10/10/2016 01:08 Provider Notified: Dr Whaley Initial Plan: EFM,SVE Datetime: 10/10/2016 00:31 Maternal Assessment Level of Consciousness: Fully Conscious Headache: Denies Blurred Vision: Yes Nausea/Vomiting: Present RUQ Epigastric Pain: Denies Facial Edema: None Labor Evaluation Frequency: placed Monitor Mode: External Resting Tone [place]: Relaxed Monitor Mode: External US Comments: FHT 135 Pain Assessment Pain Scale: 6 Pain Presence: Intermittent Pain Type: Contraction Pain Location: Abdomen Vaginal Exam Dilatation (cms): 3.0 Effacement (%): 60 Station: -3 Exam By: Lane Jones Membrane Status: Intact Vaginal Bleeding: None Cervix, Consistency: Soft Cervix, Position: Posterior Presentation 'A': Cephalic Datetime: 10/07/2016 23:48 Labor Evaluation Frequency: x3 Monitor Mode: External Duration (sec)2399: 70-130 Pattern: Normal: <= 5 Contractions in 10 Minutes Resting Tone [place]: Relaxed Heart Rate FHR Baseline Rate: 140 Monitor Mode: External US Variability: Moderate 6-25 bpm Accelerations: 15X15 Decelerations: None Category: Category I Datetime: 10/07/2016 23:34 Pain Assessment Pain Scale: 5 Pain Presence: Intermittent Pain Type: Cramping Pain Location: Abdomen; Back Datetime: 10/07/2016 23:00 Labor Evaluation Frequency: x3 Monitor Mode: External Duration (sec)2399: 70-120 Pattern: Normal: <= 5 Contractions in 10 Minutes Resting Tone [place]: Relaxed Heart Rate FHR Baseline Rate: 155 Monitor Mode: External US Variability: Moderate 6-25 bpm Accelerations: Prolonged Decelerations: None Category: Category I Datetime: 10/07/2016 22:15 Labor Evaluation Frequency: x2 Monitor Mode: External Duration (sec)2399: 70-100 Pattern: Normal: <= 5 Contractions in 10 Minutes Resting Tone [place]: Relaxed Heart Rate FHR Baseline Rate: 140 Monitor Mode: External US Variability: Moderate 6-25 bpm Accelerations: 15X15 Decelerations: None Category: Category I Pain Assessment Pain Scale: 6 Pain Presence: Intermittent Pain Type: Cramping Pain Location: Abdomen; Back Datetime: 10/07/2016 21:30 Labor Evaluation Frequency: 3-10 Monitor Mode: External Duration (sec)2399: 50-100 Pattern: Normal: <= 5 Contractions in 10 Minutes Resting Tone [place]: Relaxed Heart Rate FHR Baseline Rate: 140 Monitor Mode: External US Variability: Moderate 6-25 bpm Accelerations: 15X15 Decelerations: None Category: Category I Datetime: 10/07/2016 21:02 Pain Assessment Pain Scale: 8 Pain Presence: Constant Pain Type: Sharp Pain Location: Left Leg (Annotations: Radiates up to thigh.) Datetime: 10/07/2016 21:01 Stage of : OB Triage Assessment Type: Triage Maternal Assessment Level of Consciousness: Fully Conscious DTR's/Clonus: DTRs 2+; No Clonus Headache: Denies Blurred Vision: No Respiratory Effort: Unlabored; Regular Rhythm; Equal Expansion Breath Sounds, Left: Clear and Equal Breath Sounds, Right: Clear and Equal Nausea/Vomiting: Denies RUQ Epigastric Pain: Denies Lower Extremities Edema: None Degree: None Upper Extremities Edema: None Degree: None Facial Edema: None Temperature Route: Oral Fall Risk Assessment History of Falling: (0) No Secondary Diagnosis: (0) No Ambulatory Aid: (0) Bedrest/Nurse Assist IV Therapy: (0) No Gait: (0) Normal/Bedrest/Immobile Mental Status: (0) Oriented to Own Ability Fall Score: 0 Fall Risk Score Definition: No Risk: No action required Pain Assessment Pain Scale: 6 Pain Presence: Intermittent Pain Type: Cramping Pain Location: Abdomen; Back Datetime: 10/07/2016 21:00 EGA: 38.0 Datetime: 09/24/2016 01:15 Fall Score: 0 Fall Risk Score Definition: No Risk: No action required Datetime: 09/24/2016 01:12 EGA: 36.1 Datetime: 09/20/2016 18:23 EGA: 35.4 Datetime: 09/20/2016 16:07 Fall Score: 0 Fall Risk Score Definition: No Risk: No action required Datetime: 09/16/2016 10:13 EGA: 35.4 Datetime: 09/16/2016 08:01 Fall Score: 0 Fall Risk Score Definition: No Risk: No action required Datetime: 09/16/2016 07:28 EGA: 35.0 Datetime: 09/12/2016 17:40 EGA: 35.0 Datetime: 09/12/2016 14:24 EGA: 34.3 Datetime: 09/12/2016 14:04 Fall Score: 15 Fall Risk Score Definition: No Risk: No action required Datetime: 09/10/2016 15:33 Fall Score: 0 Fall Risk Score Definition: No Risk: No action required Datetime: 09/10/2016 15:32 EGA: 34.1 Datetime: 07/26/2016 22:52 EGA: 27.4 Datetime: 07/26/2016 22:41 Fall Score: 0 Fall Risk Score Definition: No Risk: No action required Datetime: 07/19/2016 19:54 Fall Score: 0 Fall Risk Score Definition: No Risk: No action required Datetime: 06/17/2016 19:40 Fall Score: 0 Fall Risk Score Definition: No Risk: No action required Datetime: 06/17/2016 18:50 Fall Score: 0 Fall Risk Score Definition: No Risk: No action required Datetime: 06/17/2016 18:48 EGA: 22.0
--- NOTE | 2016-10-10 07:17 | QN ---
Documentation Comment 31-year-old with IUP at 38 weeks and 3 days with complaint of decreased movement and contractions. She also complaining of some blurred vision however never reported any history of blood pressure during her course. She denies any vaginal bleeding General appearance patient is alert and oriented 4 is not in acute distress. Abdomen: Soft, gravid, fundal height consistent with gestational age. Extremities: No calf tenderness no click no edema Blood pressure is 106-122/60-64 PIH labs negative PROCEDURE: ULTRASOUND BIOPHYSICAL PROFILE CLINICAL INDICATION: 31-year-old female with contractions for viability. TECHNIQUE: Multiple sonographic images were obtained in order to perform a biophysical profile The images were reviewed on a PACS workstation. COMPARISON: Ultrasound biophysical profile September 24, 2016. FINDINGS: There is a single viable intrauterine gestation. There is a vertex presentation. Cardiac activity is present at 146 beats per minute. The placenta is fundal. The results of the biophysical profile are as follows: breathing movement = 2/2 Gross body movement = 2/2 tone = 2/2 Qualitative amniotic fluid volume = 2/2 Amniotic fluid index equals 12.4 cm. This yields a biophysical profile score of 8/8. IMPRESSION: Biophysical profile score is 8/8. Hematology - 72 Hrs Test 10/10/16 02:10 Basophils # 0.010^3/ul (0.0-0.1) Basophils % 0.4% (0.0-2.0) Eosinophils # 0.210^3/ul (0.0-0.5) Eosinophils % 2.2% (0.0-7.0) Hematocrit 31.0% (37.0-47.0) L Hemoglobin 9.9g/dl (12.0-16.0) L Lymphocytes # 1.910^3/ul (0.8-2.9) Lymphocytes % 24.8% (15.0-51.0) Mean Corpuscular Hemoglobin 26.5pg (29.0-33.0) L Mean Corpuscular Hemoglobin Concent 31.9g/dl (32.0-37.0) L Mean Corpuscular Volume 83.1fl (82.0-101.0) Mean Platelet Volume 11.2fl (7.4-10.4) H Monocytes # 0.710^3/ul (0.3-0.9) Monocytes % 8.5% (0.0-11.0) Neutrophils # 5.010^3/ul (1.6-7.5) Neutrophils % 63.7% (39.0-77.0) Nucleated Red Blood Cells # 0.010^3/ul (0.0-0.0) Nucleated Red Blood Cells % 0.0/100WBC (0.0-0.0) Platelet Count 77605^3/UL (140-415) Red Blood Count 3.7310^6/ul (4.20-5.40) L Red Cell Distribution Width 15.9% (11.5-14.5) H White Blood Count 7.810^3/ul (4.8-10.8) Chemistry Test 10/10/16 02:10 Alanine Aminotransferase (ALT/SGPT) 15IU/L (13-69) Albumin 2.7g/dl (3.3-4.9) L Albumin/Globulin Ratio 0.93 Alkaline Phosphatase 204IU/L (42-121) H Anion Gap 12 (8-16) Aspartate Amino Transf (AST/SGOT) 17IU/L (15-46) Blood Urea Nitrogen 11mg/dl (7-20) Calcium Level 8.3mg/dl (8.4-10.2) L Carbon Dioxide Level 21mmol/L (21-31) Chloride Level 110mmol/L (97-110) Creatinine 0.44mg/dl (0.44-1.00) Direct Bilirubin 0.00mg/dl (0.00-0.20) Globulin 2.90g/dl (1.3-3.2) Glucose Level 78mg/dl (70-220) Indirect Bilirubin 0.1mg/dl (0-1.1) Potassium Level 3.8mmol/L (3.5-5.1) Sodium Level 139mmol/L (135-144) Total Bilirubin 0.1mg/dl (0.2-1.3) L Total Protein 5.6g/dl (6.1-8.1) L Uric Acid 3.3mg/dl (3.1-7.9) Assessment: IUP at 38 weeks and 3 days Decreased movement. NST category 1. BPP 03/04 One episode of blurred vision. Blood pressure is normal. PIH labs negative Patient was reassured DC home Strict labor precaution, kick count discussed with the patient RT triage as needed decreased movement, contractions, vaginal bleeding or any other concerns Patient verbalized understanding Follow-up with OB office in a couple of days discussed IVONE DENNY MD Oct 10, 2016 07:17
== END 2016-10-10 04:25 | disposition home or self-care (01) ==
LOC: OBT 00:18 → L-D 00:20 → OBT 04:25
PROVIDERS: ATTEND Obstetrics & Gynecology
DX: O36.8130 Decreased fetal movements, third trimester, not applicable or unspecified (principal); O26.893 Other specified pregnancy related conditions, third trimester; H53.8 Other visual disturbances; Z3A.38 38 weeks gestation of pregnancy
CPT/HCPCS: 36415; 76818; 80053; 81003; 84560; 85025; Z7500; G0463

== ENCOUNTER 2016-10-15 13:27 | Inpatient (IN) | payer MEDICAID ==
[~2016-10-15] VITALS: Ht 157.5 cm; Wt 93.4 kg
--- NOTE | 2016-10-15 13:29 | NSTRPT ---
NST Information Datetime Report Generated by CPN: 10/15/2016 13:29 Datetime: 10/11/2016 08:10 NST Information EGA: 38.4 Test Number: 7 Time on Monitor: 10/11/2016 08:27 Time off Monitor: 10/11/2016 08:56 NST Duration (Min): 29 Reason for NST: Cholestasis Test and Monitor Explained: Monitor Explained; Test Explained; Verbalized Understanding Pulse: 85 Resp: 18 SBP: 108 DBP: 59 Test Evaluation Patient States Movement: Present Contraction Frequency: x1, denies FHR Baseline : 140 Variability: Moderate 6-25bpm Accelerations: 15X15 Decelerations: None FHR Category: Category I NST Results: Reactive Comments: PT TO U/S. SHIRA 11.6, cephalic No follow-up appointment given, pt to have induction on 10/15 per pt. 0901-Pt Home undelivered wit h LABOR precautions. kick count instructions reviewed. Pt states understanding. No further que stions asked at this time. Electronically Signed By E-Signature: with User ID: [id number] Datetime: 10/08/2016 08:00 NST Information EGA: 38.1 NST Duration (Min): 28 Datetime: 10/04/2016 08:00 NST Information EGA: 37.4 NST Duration (Min): 32 Datetime: 10/01/2016 08:10 NST Information EGA: 37.1 NST Duration (Min): 25 Datetime: 09/27/2016 08:31 NST Information EGA: 36.4 NST Duration (Min): 43 Datetime: 09/23/2016 08:10 NST Information EGA: 36.0 NST Duration (Min): 31 Datetime: 09/19/2016 08:06 NST Information EGA: 35.3 NST Duration (Min): 25
[2016-10-15 13:51] VITALS: Ht 157.5 cm; Wt 93.4 kg
[2016-10-15 13:52] VITALS: BP 113/64; PULSE 93; RESP 17
[2016-10-15] MEDS ORDERED: METHYLERGONOVINE 0.2 MG INJ IM PRN (14:00)
[2016-10-15] MEDS ORDERED: BUTORPHANOL 2 MG INJ IV PRN (14:00)
[2016-10-15] MEDS ORDERED: MISOPROSTOL 200 MCG TAB PR PRN (14:00)
[2016-10-15] MEDS ORDERED: OXYTOCIN 30 UNITS/LR 500 ML IV SCH ×2 (14:00)
[2016-10-15] MEDS ORDERED: LIDOCAINE 1% (MPF) 30 ML INJ INJ PRN (14:00)
[2016-10-15] MEDS ORDERED: CARBOPROST 250 MCG INJ IM PRN (14:00)
[2016-10-15] MEDS ORDERED: IBUPROFEN 600 MG TAB PO PRN (14:00)
[2016-10-15] MEDS ORDERED: OXYTOCIN 30 UNITS/LR 500 ML IV PRN (14:00)
[2016-10-15] MEDS: LACTATED RINGER'S 1,000 ML IV SCH ×2 (14:43→22:05)
[2016-10-15 15:52] LABS: ADD SCAN DIFF NO
[2016-10-15 15:54] LABS: BASOPHILS % 0.3 % (0.0-2.0); EOSINOPHILS # 0.1 10^3/ul (0.0-0.5); EOSINOPHILS % 1.2 % (0.0-7.0); HEMATOCRIT 31.9 % (37.0-47.0); HEMOGLOBIN 10.4 g/dl (12.0-16.0); LYMPHOCYTES # 1.6 10^3/ul (0.8-2.9); LYMPHOCYTES % 20.8 % (15.0-51.0); MEAN CORPUSCULAR HEMOGLOBIN 26.9 pg (29.0-33.0); MEAN CORPUSCULAR HGB CONC 32.6 g/dl (32.0-37.0); MEAN CORPUSCULAR VOLUME 82.6 fl (82.0-101.0); MEAN PLATELET VOLUME 11.9 fl (7.4-10.4); MONOCYTE # 0.5 10^3/ul (0.3-0.9); MONOCYTES % 6.6 % (0.0-11.0); NEUTROPHIL # 5.5 10^3/ul (1.6-7.5); NEUTROPHILS % 70.8 % (39.0-77.0); PLATELET COUNT 187 10^3/UL (140-415); RED BLOOD COUNT 3.86 10^6/ul (4.20-5.40); RED CELL DISTRIBUTION WIDTH 16.1 % (11.5-14.5); WHITE BLOOD COUNT 7.8 10^3/ul (4.8-10.8)
[2016-10-15] MEDS ORDERED: LACTATED RINGER'S 1,000 ML IV PRN (16:00)
[2016-10-15 16:04] LABS: INR 0.93; PROTIME 12.5 Sec (12.2-14.2)
[2016-10-15 16:05] LABS: PARTIAL THROMBOPLASTIN TIME 25.8 Sec (25.0-35.0)
[2016-10-15] MEDS: OXYTOCIN 30 UNITS/LR 500 ML IV SCH (16:40)
--- NOTE | 2016-10-15 16:45 | HP ---
Date/Time of Note Date/Time of Note DATE: 10/15/16 TIME: 16:42 OB - History Hx of Present Free Text/Dictation admitted for elective induction of the labor Last Menstrual Period: Jan 15, 2016 Estimated Due Date: Oct 21, 2016 : 4 Para: 3 Care: Good Care Ultrasounds: Normal mid trimester US Obstetrical Complications: None Medical Complications: None Past Family/Social History * Past Medical, Surgical, Family and Obstetric Histories reviewed from chart. Blood Type: O- Rubella: immune RPR/VDRL: Negative GBS Status: Negative HBsAG: Negative OB Admission Exam Vital Signs Vital Signs Vital Signs Date Time Temp Pulse Resp B/P Pulse Ox O2 Delivery O2 Flow Rate FiO2 10/15/16 13:52 99.0 93 17 113/64 Room Air Physical Exam HEENT: WNL Heart: Rhythm Normal Lungs: Clear, Equal Abdomen: WNL Extremities: Normal Reflexes: Normal Cervical Dilatation: 2cm Effacement: 0% Station: -3 Membranes: Intact Heart Rate: 130's Accelerations: Accelerations Present Decelerations: No Decelerations Varibility: Moderate Contractions on Admission: None Last 72 hours Lab Results CBC & BMP 10/15/16 14:40 OB Assessment/Plan Reason for admission: induction of labor Other Assessment: term gestation desires induction Induction Method: per Pitocin Protocol HAYDEE INFANTE MD Oct 15, 2016 16:45
[2016-10-15] MEDS ORDERED: MINERAL OIL LIGHT 10 ML VIAL TOP ONE (21:30)
[2016-10-16] MEDS ORDERED: EPHEDrine SULFATE 50 MG/5 ML SYG IV PRN
[2016-10-16] MEDS ORDERED: FENTAnyl 2MCG/ML-ROPIV 0.2% 100 ML BAG EPI SCH
[2016-10-16] MEDS ORDERED: ACETAMINOPHEN 325 MG TAB PO PRN (02:30)
[2016-10-16] MEDS: LACTATED RINGER'S 1,000 ML IV SCH ×4 (04:18→20:13)
[2016-10-16] MEDS ORDERED: DIPHENHYDRAMINE 50 MG INJ IM PRN (04:30)
[2016-10-16] MEDS: OXYTOCIN 30 UNITS/LR 500 ML IV SCH (08:10)
[2016-10-16] MEDS ORDERED: DIPHENHYDRAMINE 50 MG INJ IV PRN ×2 (09:00→23:30)
[2016-10-16] MEDS ORDERED: MINERAL OIL LIGHT 10 ML VIAL TOP ONE (11:10)
[2016-10-16 20:43] LABS: BARBITURATES Negative (NEGATIVE); BENZODIAZEPINES Negative (NEGATIVE); CANNABINOIDS Negative (NEGATIVE); COCAINE Negative (NEGATIVE); OPIATES Negative (NEGATIVE)
--- NOTE | 2016-10-16 22:13 | LDN ---
Date/Time of Note Date/Time of Note DATE: 10/16/16 TIME: 22:11 Delivery Summary of a viable over intact perineum Weeks of Gestation 39+ Placenta Delivered: Spontaneously, Intact & Complete Meconium: none Episiotomy: No Anesthesia type: Epidural Estimated blood loss: 300 Sponge & Needle done & correct: Yes All needle counts correct: Yes Any foreign bodies felt in the: No Problems: Delivery Information Sex Sex: male Apgars 1 Minute: 9 5 Minute: 9 Suctioning Nose & mouth suctioned at janet: Yes Delee suction performed: No Umbilical Cord Umbilical cord with: 3 Vessels Cord presentations: no nuchal cord Cord Blood was obtained: Yes Mother & Baby Disposition Disposition Mom & Baby to Maternity; Good: Yes (mother and baby were recovered in good condition ) Mom transferred to: Other (maternity ) Baby to NICU: No HAYDEE INFANTE MD Oct 16, 2016 22:13
[2016-10-16] MEDS ORDERED: NALOXONE (0.4 MG/ML) INJ IV PRN ×2 (23:30)
[2016-10-16] MEDS ORDERED: morphine 2 MG INJ IV PRN (23:30)
[2016-10-16] MEDS ORDERED: morphine 4 MG/ML VIAL IV PRN (23:30)
[2016-10-16] MEDS ORDERED: ONDANSETRON 4 MG INJ IV PRN ×2 (23:30)
[2016-10-17] VITALS (7 sets, daily range): BP systolic 109–127; BP diastolic 61–75; PULSE 73–78; RESP 18–20
[2016-10-17] MEDS ORDERED: OXYTOCIN 30 UNITS/LR 500 ML IV PRN
[2016-10-17] MEDS ORDERED: METHYLERGONOVINE 0.2 MG INJ IM PRN
[2016-10-17] MEDS ORDERED: BENZOCAINE 20% 56 ML SPRAY TOP PRN
[2016-10-17] MEDS ORDERED: ACETAMINOPHEN/CODEINE #3 TAB PO PRN
[2016-10-17] MEDS ORDERED: DIBUCAINE 1% 30 GM OINT PR PRN
[2016-10-17] MEDS ORDERED: MISOPROSTOL 200 MCG TAB PR PRN
[2016-10-17] MEDS ORDERED: ZOLPIDEM 5 MG TAB PO PRN
[2016-10-17] MEDS ORDERED: WITCH HAZEL/GLYCERIN PAD PR PRN
[2016-10-17] MEDS ORDERED: CARBOPROST 250 MCG INJ IM PRN
[2016-10-17] MEDS: CEPHALEXIN 500 MG CAP PO SCH ×4 (00:38→17:27)
[2016-10-17] MEDS: LACTATED RINGER'S 1,000 ML IV* SCH ×4 (00:38→23:46)
[2016-10-17] MEDS: LANOLIN 7 GM TUBE TOP PRN (00:53)
[2016-10-17] MEDS: ACETAMINOPHEN/CODEINE #3 TAB PO PRN ×3 (00:54→15:06)
[2016-10-17] MEDS: IBUPROFEN 600 MG TAB PO SCH ×4 (05:39→17:27)
[2016-10-17 08:11] LABS: ADD SCAN DIFF NO
[2016-10-17 08:23] LABS: BASOPHILS % 0.2 % (0.0-2.0); EOSINOPHILS # 0.1 10^3/ul (0.0-0.5); EOSINOPHILS % 0.4 % (0.0-7.0); HEMATOCRIT 28.5 % (37.0-47.0); HEMOGLOBIN 9.1 g/dl (12.0-16.0); LYMPHOCYTES # 1.7 10^3/ul (0.8-2.9); LYMPHOCYTES % 11.8 % (15.0-51.0); MEAN CORPUSCULAR HEMOGLOBIN 26.4 pg (29.0-33.0); MEAN CORPUSCULAR HGB CONC 31.9 g/dl (32.0-37.0); MEAN CORPUSCULAR VOLUME 82.6 fl (82.0-101.0); MEAN PLATELET VOLUME 11.8 fl (7.4-10.4); MONOCYTE # 1.2 10^3/ul (0.3-0.9); MONOCYTES % 8.4 % (0.0-11.0); NEUTROPHIL # 11.2 10^3/ul (1.6-7.5); NEUTROPHILS % 78.5 % (39.0-77.0); PLATELET COUNT 153 10^3/UL (140-415); RED BLOOD COUNT 3.45 10^6/ul (4.20-5.40); WHITE BLOOD COUNT 14.2 10^3/ul (4.8-10.8)
[2016-10-17] MEDS: SENNA/DOCUSATE NA (8.6MG/50MG) TAB PO SCH ×2 (08:57→20:02)
[2016-10-17] MEDS: MAGNESIUM HYDROXIDE 30ML CUP PO SCH ×2 (08:57→20:02)
--- NOTE | 2016-10-17 13:36 | DS ---
Date/Time of Note Date/Time of Note home next day DATE: 10/17/16 TIME: 13:35 Obstetrical Discharge Record Final Diagnosis Final Diagnosis: Term delivered Other Final Diagnosis S/P vaginal delivery Vaginal Delivery Obstetrical Delivery: Spontaneous Complications Augmentation: Yes Induction: Yes Condition on Discharge Physical Assessment Last Vitals: see nurses notes Voiding: Yes Bowel Movement: Yes Breast: Soft, non-tender, Filling Fundus: Firm Abdomen and Incision: soft BS + Episiotomy: NA Calf Tenderness: No Patient Condition: Good HAYDEE INFANTE MD Oct 17, 2016 13:36
--- NOTE | 2016-10-17 14:46 | PD.PPDC ---
DIRECTOR PROJECT MANAGEMENT Discharge Instruction Provider Information Physician Information 31 y/o female had vaginal delivery Diagnosis Final Diagnosis: S/P vaginal delivery Condition Patient Condition: Good Diet Diet: Resume Regular Diet Activity/Restrictions Activity: Normal Activity May Shower Restrictions: Nothing in the Vagina Return to Work or School: December 02, 2016 Follow-up Follow-up with Physician: 4 Return to clinic for OB Instructions: Breast Tenderness Depression HAYDEE INFANTE MD Oct 17, 2016 14:46
[2016-10-17] MEDS ORDERED: IBUP-1542 PO (14:47)
--- NOTE | 2016-10-17 17:59 | QN ---
Documentation Comment aC/P pain and inability to walk placed patient on Robaxin, and will start PT HAYDEE INFANTE MD Oct 17, 2016 17:58
[2016-10-17] MEDS: METHOCARBAMOL 500 MG TAB PO SCH (20:02)
[2016-10-18] MEDS: METHOCARBAMOL 500 MG TAB PO SCH ×4 (00:45→17:37)
[2016-10-18] MEDS: IBUPROFEN 600 MG TAB PO SCH ×4 (00:45→17:37)
[2016-10-18] MEDS: CEPHALEXIN 500 MG CAP PO SCH ×4 (00:45→17:37)
[2016-10-18 04:00] VITALS: BP 117/68; PULSE 74; RESP 18
[2016-10-18 07:30] VITALS: BP 115/64; PULSE 74; RESP 20
[2016-10-18 07:39] LABS: ADD SCAN DIFF NO
[2016-10-18] MEDS: LACTATED RINGER'S 1,000 ML IV* SCH ×3 (07:46→23:17)
[2016-10-18 07:47] LABS: BASOPHILS % 0.2 % (0.0-2.0); EOSINOPHILS # 0.1 10^3/ul (0.0-0.5); EOSINOPHILS % 1.6 % (0.0-7.0); HEMATOCRIT 27.1 % (37.0-47.0); HEMOGLOBIN 8.6 g/dl (12.0-16.0); LYMPHOCYTES # 2.3 10^3/ul (0.8-2.9); LYMPHOCYTES % 27.2 % (15.0-51.0); MEAN CORPUSCULAR HEMOGLOBIN 26.5 pg (29.0-33.0); MEAN CORPUSCULAR HGB CONC 31.7 g/dl (32.0-37.0); MEAN CORPUSCULAR VOLUME 83.6 fl (82.0-101.0); MEAN PLATELET VOLUME 11.9 fl (7.4-10.4); MONOCYTE # 0.6 10^3/ul (0.3-0.9); MONOCYTES % 7.4 % (0.0-11.0); NEUTROPHIL # 5.4 10^3/ul (1.6-7.5); NEUTROPHILS % 63.1 % (39.0-77.0); PLATELET COUNT 165 10^3/UL (140-415); RED BLOOD COUNT 3.24 10^6/ul (4.20-5.40); RED CELL DISTRIBUTION WIDTH 16.1 % (11.5-14.5); WHITE BLOOD COUNT 8.6 10^3/ul (4.8-10.8)
[2016-10-18] MEDS: MAGNESIUM HYDROXIDE 30ML CUP PO SCH ×2 (08:52→21:56)
[2016-10-18] MEDS: SENNA/DOCUSATE NA (8.6MG/50MG) TAB PO SCH ×2 (08:52→21:56)
[2016-10-18] MEDS ORDERED: MEASLES,MUMPS,RUBELLA VACCINE INJ SC* ONE (09:00)
[2016-10-18] MEDS ORDERED: DIPHTH/TET/ACEL PERTUSS (ADULT) 0.5 ML VIAL IM* ONE (09:00)
[2016-10-18] MEDS ORDERED: VARICELLA VACCINE LIVE/PF 1,350 UNIT/0.5 ML ML SC* ONE (09:00)
[2016-10-18] MEDS: ACETAMINOPHEN/CODEINE #3 TAB PO PRN (13:12)
[2016-10-18 15:51] VITALS: BP 115/68; RESP 20
--- NOTE | 2016-10-18 17:15 | QN ---
Documentation Comment patient with gait problems probably because of spasm in her groins will be reevaluate next day by PT service will keep patient inhouse until next day Patient physical exam is grossly normal Neurologic exam in terms of muscle force and sensations are normal in both lower extremities will D/C next AM after PT evaluation HAYDEE INFANTE MD Oct 18, 2016 17:15
--- NOTE | 2016-10-18 18:08 | RADRPT ---
PROCEDURE: XR Pelvis. CLINICAL INDICATION: Unable to bear weight. TECHNIQUE: Single AP view of the pelvis. COMPARISON: None. FINDINGS: There is no fracture or dislocation. The symphysis pubis is diastatic (19 mm). The joint spaces ar e preserved. The bowel gas pattern is normal. IMPRESSION: 1. 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 Correlati on with patient history is recommended. This could be further evaluated with MRI if clinically moiz anted. 2. No fracture or dislocation. RPTAT: HTAR .Mati Coronado MD, Date Time Electronically viewed and signed by .Mati Coronado MD, on 10/18/2016 18:08 .R/
[2016-10-18 19:30] VITALS: BP 110/55; PULSE 69; RESP 20
[2016-10-19] MEDS: CEPHALEXIN 500 MG CAP PO SCH ×5 (00:20→23:59)
[2016-10-19] MEDS: METHOCARBAMOL 500 MG TAB PO SCH ×4 (00:20→17:41)
[2016-10-19] MEDS: IBUPROFEN 600 MG TAB PO SCH ×2 (00:20→06:26)
--- NOTE | 2016-10-19 02:07 | QN ---
Documentation Comment 31 y/o female S/P vaginal delivery after multiple pregnancies with C/O groin and lower abdominal pain leading to gait problems: On X ray she has diastasis of symphysis treatment of which is pain management and other supportive measures. will D/C home on bed rest(side), Ice packto symphysis and suprapubic area and ......... HAYDEE INFANTE MD Oct 19, 2016 02:07
[2016-10-19] MEDS: ACETAMINOPHEN/CODEINE #3 TAB PO PRN (02:12)
[2016-10-19 04:00] VITALS: BP 111/68; PULSE 72; RESP 20
[2016-10-19] MEDS ORDERED: ACETAMINOPHEN/CODEINE #3 TAB PO PRN ×2 (04:00→11:04)
[2016-10-19 08:00] VITALS: BP 112/58; PULSE 72; RESP 20
[2016-10-19] MEDS: SENNA/DOCUSATE NA (8.6MG/50MG) TAB PO SCH ×2 (09:00→21:00)
[2016-10-19] MEDS: MAGNESIUM HYDROXIDE 30ML CUP PO SCH ×2 (09:00→21:00)
[2016-10-19] MEDS: OXYCODONE/ACETAMINOPHEN (5/325) TAB PO PRN (12:27)
[2016-10-19] MEDS: IBUPROFEN 800 MG TAB PO SCH ×2 (14:00→17:41)
[2016-10-19 16:00] VITALS: BP 130/63; PULSE 73; RESP 18
[2016-10-19 19:40] VITALS: BP 123/61; PULSE 72; RESP 18
--- NOTE | 2016-10-19 23:29 | PN ---
Date/Time of Note Date/Time of Note DATE: 10/19/16 TIME: 23:25 Assessment/Plan VTE Prophylaxis VTE Prophylaxis Intervention: ambulation Lines/Catheters IV Catheter Type (from Nrsg): Saline Lock Assessment/Plan Assessment/Plan patient with diastasis of symphysis. PT service wants to keep patient for atleast 1 - 2 days for further evaluation and treatment will consult patient case coordinator continue current treatment Subjective 24 Hr Interval Summary Free Text/Dictation S/P vaginal delivery with gait problems and weakness in her legs has diastasis of symphysis C/P groin and lower abdominal pain Constitutional: improved, no complaints Eyes: no complaints ENT: no complaints Respiratory: no complaints Cardiovascular: no complaints Gastrointestinal: no complaints Genitourinary: no complaints Musculoskeletal: no complaints Skin: no complaints Neurologic: no complaints Endocrine: no complaints Lymphatic: no complaints Psychological: nl mood/affect, no complaints Immunologic: no complaints Exam/Review of Systems Vital Signs Vitals Vital Signs Date Time Temp Pulse Resp B/P Pulse Ox O2 Delivery O2 Flow Rate FiO2 10/19/16 19:40 98.0 72 18 123/61 Room Air Exam Necrologic exam is normal in both lower extremities Constitutional: alert, oriented, well developed Psych: nl mood/affect, no complaints Head: atraumatic, normocephalic Eyes: EOMI, PERRL, nl conjunctiva, nl lids, nl sclera ENMT: nl external ears & nose, nl lips & teeth, nl nasal mucosa & septum Neck: non-tender, supple Respiratory: clear to auscultation, normal air movement Cardiovascular: nl pulses, regular rate and rhythm Gastrointestinal: nl liver, spleen, non-tender, soft Musculoskeletal: nl extremities to inspection, nl gait and stance Extremities: normal pulses Neurological: DONATIONS ATTENDANT II-XII intact, nl mental status, nl speech, nl strength Skin: nl turgor, No rash or lesions Lymph: nl lymph nodes Results Result Diagram: 10/18/16 0640 Medications Medications Current Medications Acetaminophen/ Codeine Phosphate (Tylenol No.3) 2 tab Q4H PRN PO PAIN LEVEL 4- 10 Last administered on 10/19/16t 02:12; Admin Dose 2 TAB; Start 10/17/16 at 00: 00 Zolpidem Tartrate (Ambien) 5 mg QHS PRN PO INSOMNIA; Start 10/17/16 at 00:00 Senna/Docusate Sodium (Senokot-S) 1 tab BID PO Last administered on 10/18/16 21:56; Admin Dose 1 TAB; Start 10/17/16 at 09:00 Magnesium Hydroxide 30 ml 30 ml Q12 PO Last administered on 10/18/16 21:56; Admin Dose 30 ML; Start 10/17/16 at 09:00 Oxytocin/Lactated Ringer's 500 ml @ 0 mls/hr ONCE PRN IV For Hemorrhage Management; Start 10/17/16 at 00:00 Methylergonovine Maleate (Methergine) 0.2 mg ONCE PRN IM VAGINAL BLEEDING; Start 10/17/16 at 00:00 Carboprost Tromethamine (Hemabate) 250 mcg ONCE PRN IM VAGINAL BLEEDING; Start 10/17/16 at 00:00 Misoprostol (Cytotec) 1,000 mcg ONCE PRN UT VAGINAL BLEEDING; Start 10/17/16 at 00:00 Cephalexin (Keflex) 500 mg Q6 PO Last administered on 10/19/16 17:42; Admin Dose 500 MG; Start 10/17/16 at 00:00 Methocarbamol (Robaxin) 500 mg Q6 PO Last administered on 10/19/16 17:41; Admin Dose 500 MG; Start 10/17/16 at 20:00 Ibuprofen (Motrin) 800 mg Q8 PO Last administered on 10/19/16 17:41; Admin Dose 800 MG; Start 10/19/16 at 14:00 Oxycodone/ Acetaminophen (Percocet (5/ 325)) 2 tab Q4H PRN PO PAIN Last administered on 10/19/16 12:27; Admin Dose 2 TAB; Start 10/19/16 at 11:00 Acetaminophen/ Codeine Phosphate (Tylenol No.3) 1 tab Q4H PRN PO PAIN LEVEL 1-5 ; Start 10/19/16 at 11:04 HAYDEE INFANTE MD Oct 19, 2016 23:29
[2016-10-20] MEDS: OXYCODONE/ACETAMINOPHEN (5/325) TAB PO PRN ×2 (00:07→19:50)
[2016-10-20 04:00] VITALS: BP 118/83; PULSE 70; RESP 18
[2016-10-20] MEDS: IBUPROFEN 800 MG TAB PO SCH ×3 (05:48→21:32)
[2016-10-20] MEDS: METHOCARBAMOL 500 MG TAB PO SCH ×4 (05:48→17:17)
[2016-10-20] MEDS: CEPHALEXIN 500 MG CAP PO SCH ×3 (05:48→17:17)
[2016-10-20 08:15] VITALS: BP 118/72; PULSE 74; RESP 18
[2016-10-20] MEDS: SENNA/DOCUSATE NA (8.6MG/50MG) TAB PO SCH ×2 (09:00→21:25)
[2016-10-20] MEDS: MAGNESIUM HYDROXIDE 30ML CUP PO SCH ×2 (09:00→21:25)
[2016-10-20 16:30] VITALS: BP 129/80; PULSE 67; RESP 18
[2016-10-20 19:50] VITALS: BP 138/71; PULSE 73; RESP 18
[2016-10-21] MEDS: CEPHALEXIN 500 MG CAP PO SCH ×4 (00:48→18:24)
[2016-10-21] MEDS: METHOCARBAMOL 500 MG TAB PO SCH ×4 (00:57→18:24)
[2016-10-21 04:00] VITALS: BP 132/80; PULSE 66; RESP 18
[2016-10-21] MEDS: IBUPROFEN 800 MG TAB PO SCH ×2 (05:38→15:04)
[2016-10-21] MEDS: SENNA/DOCUSATE NA (8.6MG/50MG) TAB PO SCH (07:46)
[2016-10-21] MEDS: MAGNESIUM HYDROXIDE 30ML CUP PO SCH (07:46)
[2016-10-21 08:00] VITALS: BP 116/67; PULSE 77; RESP 18
[2016-10-21 16:00] VITALS: BP 127/80; PULSE 70; RESP 18
--- NOTE | 2016-10-21 16:07 | QN ---
Documentation Comment 10/20/2016: late entry patient is cleared by PT service seems to have slight improvement in walking willD/C home next day HAYDEE INFANTE MD Oct 21, 2016 16:07
--- NOTE | 2016-10-21 16:11 | DS ---
Date/Time of Note Date/Time of Note DATE: 10/21/16 TIME: 16:09 Discharge Summary Admission/Discharge Info Admit Date/Time Oct 15, 2016 at 13:27 Discharge Date/Time 10/21/2016 Final Diagnosis S/P vaginal delivery and diastasis of symphysis of pubis Patient Condition: Good Procedures vaginal delivery Hx of Present Illness 31 y/o female had vaginal delivery and diastasis of symphysis of pubis was made after delivery and finally was D/Andre home Hospital Course uncomplicated Home Meds Active Scripts Ibuprofen* (Ibuprofen*) 600 Mg Tablet, 600 MG PO Q6, #30 TAB 0 Refills Prov:HAYDEE INFANTE MD 10/17/16 Follow-up Plan 3 weeks in clinic HAYDEE INFANTE MD Oct 21, 2016 16:11
[2016-10-21] MEDS: LANOLIN 7 GM TUBE TOP PRN (18:24)
== END 2016-10-21 20:10 | disposition home or self-care (01) | DRG 775 ==
LOC: L-D 13:27 → PP1 10-16 23:59
PROVIDERS: ADMIT Obstetrics & Gynecology; ATTEND Obstetrics & Gynecology
PROC: 10E0XZZ Delivery of Products of Conception, External Approach (ICD-10-PCS; principal; 2016-10-16)
DX: O99.214 Obesity complicating childbirth (principal); O71.89 Other specified obstetric trauma; Z3A.39 39 weeks gestation of pregnancy; Z37.0 Single live birth
CPT/HCPCS: 62319; 72170; 80307; 85025; 85610; 85730; 86592; 86850; 86885; 86900; 86901; 87340; 90715; 90716; 97110; 97116; 97162; 97530; J1200; J2270; J2590; J2790; J3010; J7120

== ENCOUNTER 2017-03-13 23:45 | Emergency (ER) | END 2017-03-14 04:15 | disposition home or self-care (01) | DX: R10.11 Right upper quadrant pain (principal); K80.20 Calculus of gallbladder without cholecystitis without obstruction; J45.909 Unspecified asthma, uncomplicated; R11.10 Vomiting, unspecified; Z91.040 Latex allergy status | CPT/HCPCS: 36415; 76705; 80053; 81001; 82150; 83690; 84703; 85025; Z7502; Z7610 ==

== ENCOUNTER 2017-04-05 02:29 | Emergency (ER) | payer MEDICAID ==
[~2017-04-05] VITALS: Ht 157.5 cm; Wt 87.0 kg
[~2017-04-05 02:29] MED LIST changes: +HYDR-902 PO; +IBUP-1542 PO; +IBUP800T25 PO; +ONDA4TAB8 PO; -PREN1TAB49 PO; -URSO300C3 PO
[2017-04-05 02:46] VITALS: Ht 157.5 cm; Wt 87.0 kg
[2017-04-05 03:06] LABS: URINE BLOOD (Dip) POC Negative (NEGATIVE)
--- NOTE | 2017-04-05 03:07 | ERA ---
ER Documentation Chief Complaint Date/Time DATE: 04/05/17 TIME: 03:06 Chief Complaint Abdominal pain HPI The patient is a 31-year-old female, presenting with acute epigastric abdominal pain that began about 1 AM after eating . She had similar symptoms previously, she was seen in the ER on March 14, 2017 and had an ultrasound of the gallbladder that showed gallstones. She is awaiting to see a general surgeon for elective cholecystectomy. She denies fever, chills, neck pain, chest pain, dyspnea, complains of nausea and vomiting mostly mucus, denies dysuria, diarrhea , constipation. She does not smoke nor drink Past medical history: Asthma, cholelithiasis Past surgical history: Left ankle ROS All systems reviewed and are negative except as per history of present illness. Medications Home Meds Active Scripts Ibuprofen* (Motrin*) 600 Mg Tab, 600 MG PO Q6, #20 TAB Prov:PACO CANO MD 04/05/17 Ondansetron Hcl* (Zofran*) 4 Mg Tablet, 4 MG PO Q8H Y for NAUSEA AND/OR VOMITING , #20 TAB Prov:BENIGNO LOVE 03/14/17 Ibuprofen* (Motrin*) 800 Mg Tab, 800 MG PO Q8 Y for PAIN AND OR ELEVATED TEMP, # 30 TAB Prov:BENIGNO LOVE 03/14/17 Reported Medications Naproxen* (Naproxen*) 500 Mg Tablet, 500 MG PO BID Y for PAIN LEVEL 4-6, TAB 04/05/17 Discontinued Scripts Hydrocodone/Acetaminophen ([place] 10-325 Tablet) 1 Each Tablet, 1 TAB PO Q6H Y for PAIN, #7 TAB Prov:BENIGNO LOVE 03/14/17 Ibuprofen* (Ibuprofen*) 600 Mg Tablet, 600 MG PO Q6, #30 TAB 0 Refills Prov:HAYDEE INFANTE MD 10/17/16 Allergies Allergies: Coded Allergies: Latex, Natural Rubber (Unverified Allergy, Mild, Rash, 04/05/17) PMhx/Soc History of Surgery: Yes (ankle surgeryn 2003) Anesthesia Reaction: No Hx Neurological Disorder: No Hx Respiratory Disorders: Yes (Asthma) Hx Cardiac Disorders: No Hx Psychiatric Problems: No Hx Miscellaneous Medical Probl: No Hx Alcohol Use: No Hx Substance Use: No Hx Tobacco Use: No Physical Exam Vitals Vital Signs Date Time Temp Pulse Resp B/P Pulse Ox O2 Delivery O2 Flow Rate FiO2 04/05/17 04:53 78 18 127/84 98 Room Air Physical Exam Const: No acute distress. Head: Atraumatic. Eyes: Normal Conjunctiva. ENT: Normal External Ears, Nose and Mouth. Neck: Full range of motion. No meningismus. Resp: Clear to auscultation bilaterally. Cardio: Regular rate and rhythm. Abd: Soft, non distended, normal bowel sounds, Mild epigastric abdominal tenderness, no right lower quadrant, rigidity, rebound, CVA tenderness Skin: No petechiae or rashes. Back: No midline or flank tenderness. Ext: No cyanosis, or edema. Neur: Awake and alert. No focal deficit Psych: Normal Mood and Affect. Result Diagram: 04/05/17 0329 04/05/17 0329 Results 24 hrs Laboratory Tests Test 04/05/17 03:13 04/05/17 03:29 Bedside Urine pH (LAB) 6.5 Bedside Urine Protein (LAB) Trace Bedside Urine Glucose (UA) Negative Bedside Urine Ketones (LAB) Negative Bedside Urine Blood Negative Bedside Urine Nitrite (LAB) Negative Bedside Urine Leukocyte Esterase (L Negative White Blood Count 9.310^3/ul Red Blood Count 4.3910^6/ul Hemoglobin 12.3g/dl Hematocrit 36.3% Mean Corpuscular Volume 82.7fl Mean Corpuscular Hemoglobin 28.0pg Mean Corpuscular Hemoglobin Concent 33.9g/dl Red Cell Distribution Width 13.6% Platelet Count 67853^3/UL Mean Platelet Volume 11.0fl Neutrophils % 67.2% Lymphocytes % 24.8% Monocytes % 5.9% Eosinophils % 1.5% Basophils % 0.3% Nucleated Red Blood Cells % 0.0/100WBC Neutrophils # (Manual) 6.210^3/ul Lymphocytes # 2.310^3/ul Monocytes # 0.610^3/ul Eosinophils # 0.110^3/ul Basophils # 0.010^3/ul Nucleated Red Blood Cells # 0.010^3/ul Sodium Level 142mmol/L Potassium Level 3.7mmol/L Chloride Level 108mmol/L Carbon Dioxide Level 22mmol/L Anion Gap 16 Blood Urea Nitrogen 21mg/dl Creatinine 0.65mg/dl Glucose Level 104mg/dl Calcium Level 9.9mg/dl Total Bilirubin 0.2mg/dl Direct Bilirubin 0.00mg/dl Indirect Bilirubin 0.2mg/dl Aspartate Amino Transf (AST/SGOT) 22IU/L Alanine Aminotransferase (ALT/SGPT) 30IU/L Alkaline Phosphatase 99IU/L Total Protein 7.8g/dl Albumin 4.4g/dl Globulin 3.40g/dl Albumin/Globulin Ratio 1.29 Lipase 200U/L Current Medications Medications (Trade) Dose Ordered Sig/Mary Anne Route PRN Reason Start Time Stop Time Status Last Admin Dose Admin Sodium Chloride (NS) 1,000 ml @ 1,000 mls/hr Q1H STAT IV 04/05/17 03:10 04/05/17 04:09 DC 04/05/17 03:36 Morphine Sulfate (morphine) 2 mg ONCE STAT IV 04/05/17 03:10 04/05/17 03:12 DC 04/05/17 03:36 Ondansetron HCl (Zofran Inj) 4 mg ONCE STAT IV 04/05/17 03:10 04/05/17 03:12 DC 04/05/17 03:36 Procedures/MDM MEDICAL MAKING DECISION: The patient is a 31-year-old female, presenting with acute biliary colic She was treated with 1 L normal saline for clinical dehydration, morphine 2 mg IV for pain, Zofran 4 mg IV for her nausea with good response The differential diagnoses considered include but are not limited to cholelithiasis, cholecystitis, cystitis, pancreatitis, hepatitis, gastritis, peptic ulcer disease, gastric ulcer, appendicitis, diverticulitis, cholangitis, choledocholithiasis, partial small bowel obstruction. Departure Diagnosis: Primary Impression: Biliary colic Condition: Good Comments She was discharged with Motrin I discussed the findings with the patient. I advised the patient to follow-up with the primary physician and referral to general surgery for elective cholecystectomy in about 1-2 days, sooner if needed and return if any concern. The patient's blood pressure was elevated (>120/80) but appears stable without evidence of hypertension emergency or urgency. The patient was counseled about the risks of hypertension and urged to pursue outpatient monitoring and therapy within a week with their primary care physician. PACO CANO MD Apr 05, 2017 03:06
[2017-04-05] MEDS ORDERED: SOD CHLORIDE 0.9% 1,000 ML IV STA (03:10)
[2017-04-05] MEDS ORDERED: morphine 2 MG INJ IV STA (03:10)
[2017-04-05] MEDS ORDERED: ONDANSETRON 4 MG INJ IV STA (03:10)
[2017-04-05] MEDS ORDERED: NAPR-688 PO (04:02)
[2017-04-05 04:09] LABS: ALBUMIN 4.4 g/dl (3.3-4.9); ALBUMIN/GLOBULIN RATIO 1.29; BILIRUBIN,INDIRECT 0.2 mg/dl (0-1.1); BILIRUBIN,TOTAL 0.2 mg/dl (0.2-1.3); CALCIUM 9.9 mg/dl (8.4-10.2); CREATININE 0.65 mg/dl (0.44-1.00); POTASSIUM 3.7 mmol/L (3.5-5.1); TOTAL PROTEIN 7.8 g/dl (6.1-8.1)
[2017-04-05 04:22] LABS: BASOPHILS % 0.3 % (0.0-2.0); EOSINOPHILS # 0.1 10^3/ul (0.0-0.5); EOSINOPHILS % 1.5 % (0.0-7.0); HEMATOCRIT 36.3 % (37.0-47.0); HEMOGLOBIN 12.3 g/dl (12.0-16.0); LYMPHOCYTES # 2.3 10^3/ul (0.8-2.9); LYMPHOCYTES % 24.8 % (15.0-51.0); MEAN CORPUSCULAR HGB CONC 33.9 g/dl (32.0-37.0); MEAN CORPUSCULAR VOLUME 82.7 fl (82.0-101.0); MONOCYTE # 0.6 10^3/ul (0.3-0.9); MONOCYTES % 5.9 % (0.0-11.0); NEUTROPHILS % 67.2 % (39.0-77.0); PLATELET COUNT 259 10^3/UL (140-415); RED BLOOD COUNT 4.39 10^6/ul (4.20-5.40); RED CELL DISTRIBUTION WIDTH 13.6 % (11.5-14.5); WHITE BLOOD COUNT 9.3 10^3/ul (4.8-10.8)
[2017-04-05 04:53] VITALS: BP 127/84; PULSE 78; RESP 18
[2017-04-05] MEDS ORDERED: IBUP-1542 PO (05:00)
== END 2017-04-05 05:14 | disposition home or self-care (01) ==
LOC: E/R 02:29
DX: K80.50 Calculus of bile duct without cholangitis or cholecystitis without obstruction (principal); J45.909 Unspecified asthma, uncomplicated
CPT/HCPCS: 36415; 80053; 81003; 83690; 85025; 96374; 96375; J2270; J2405; J7030; Z7502

== ENCOUNTER 2018-03-20 09:03 | Emergency (ER) | END 2018-03-20 13:25 | disposition home or self-care (01) ==